=== PATIENT | female | born 1975 | race Hispanic/Latino ===

== ENCOUNTER → 2016-07-01 | Outpatient (CLI) | payer BC ==
[~2016-07-01] MED LIST: BACI500O59 TOP; CLAR10CA3 PO; CRES5TAB PO; CYCL10TA PO; DULC100C PO; E-Z-PAQUE 96% w/w SUSP 176GM BTL As Ordered ONE; EXCETAB80 PO; FERR220E2 PO; HYDR10T PO; HYDR1TAB97 PO; IBUP80TA PO; LIBR5CAP PO; MAGN1TAB25 PO; MAXA10TA14 PO; METF1000 PO; OMEP20CA3 PO; ORSYTAB PO; PROBCAP4 PO; SUDA30TA PO; VERA40TA PO; VITA10006 PO; VITA2000 PO
--- NOTE | 2016-07-01 12:03 | REP ---
Clinical: Inflammatory bowel disease. Technique: Single contrast small bowel follow-through examination. Findings: Client Service Representative film of the abdomen and pelvis is unremarkable. Small-bowel follow-through examination demonstrates normal appearance to the stomach, duodenum, jejunum, and ileum as well as ascending and transverse colon by single contrast barium evaluation. Spot images throughout the abdomen and pelvis demonstrate normal appearance and motility to the small bowel without areas of stricture/narrowing, fixed loops, or obvious intrinsic/extrinsic abnormalities. Normal terminal ileum and ileocecal valve identified in the right lower quadrant. Total fluoroscopic time 58 seconds. Impression: Normal small bowel follow-through examination. Signed by Edwardo Langley MD 07/01/2016 11:54 A
== END ==
LOC: M RAD 08:48
PROVIDERS: ATTEND Physician Assistant
DX: K58.9 Irritable bowel syndrome, unspecified (principal)

== ENCOUNTER → 2017-02-03 | Outpatient (CLI) | payer BC ==
[~2017-02-03] MED LIST changes: -E-Z-PAQUE 96% w/w SUSP 176GM BTL As Ordered ONE; +HYDR-3713 PO; +HYDR-643 PO; -HYDR10T PO; -HYDR1TAB97 PO; -METF1000 PO; +METF10004 PO
[2017-02-03 20:37] LABS: ALBUMIN 3.5 GM/DL (3.2-5.2); ALKALINE PHOSPHATASE 52 U/L (45-117); ALT/SGPT 29 U/L (12-78); ANION GAP 11 MEQ/L (8-16); AST/SGOT 19 U/L (15-37); BILIRUBIN,TOTAL 0.2 MG/DL (0.2-1.0); BLOOD UREA NITROGEN 16 MG/DL (7-18); CALCIUM LEVEL 8.7 MG/DL (8.5-10.1); CARBON DIOXIDE LEVEL 24 MEQ/L (21-32); CHLORIDE LEVEL 107 MEQ/L (98-107); CREATININE FOR GFR 0.96 MG/DL (0.55-1.02); GLOMERULAR FILTRATION RATE > 60.0 (>60); GLUCOSE, FASTING 94 MG/DL (70-105); POTASSIUM SERUM 4.6 MEQ/L (3.5-5.1); SODIUM LEVEL 142 MEQ/L (136-145)
== END ==
LOC: M SMT 14:18
PROVIDERS: ATTEND Physician Assistant Medical
DX: R19.7 Diarrhea, unspecified (principal)

== ENCOUNTER → 2017-05-26 | Outpatient (CLI) | payer BC ==
--- NOTE | 2017-05-27 05:57 | REP ---
Clinical: Pelvic cyst. Comparison: 05/28/2016. . Technique: Transabdominal pelvic ultrasound followed by transvaginal examination for better evaluation of the endometrium and adnexa. Findings: Bladder is unremarkable and measures 8.5 x 7.0 x 8.7 cm . Normal anteverted uterus measures 8.1 x 3.4 x 4.1 cm and a 1.7 cm submucosal fibroid is appreciated . The endometrial complex measures 4.9 mm thickness. Bilateral ovaries are normal in appearance. Right ovary measures 2.8 x 1.5 x 1.3 cm and includes 1 cm follicle. Left ovary measures 2.2 x 1.3 x 1.4 cm and includes 1.2 cm follicle. No pelvic fluid or adnexal mass lesion . Impression: 1. 1.7 cm submucosal fibroid. 2. Essentially normal bilateral ovaries without evidence for torsion.
== END ==
LOC: M WHC 13:53
PROVIDERS: ATTEND Obstetrics & Gynecology
DX: D25.0 Submucous leiomyoma of uterus (principal)

== ENCOUNTER → 2017-06-19 | Outpatient (CLI) | payer BC | LOC: M WHC 14:29 | DX: Z12.31 Encounter for screening mammogram for malignant neoplasm of breast (principal) | CPT/HCPCS: G0202 ==

== ENCOUNTER → 2017-07-03 | Outpatient (CLI) | payer BC ==
[2017-07-03 11:25] LABS: BASO % 0.2 % (0.0-1.0); EOS # 0.1 10^3/uL (0.0-0.50); EOS % 1.5 % (0.0-3.0); HEMATOCRIT 38.7 % (36.0-47.0); HEMOGLOBIN 12.4 g/dl (12.0-16.0); IMMATURE GRANULOCYTE % 0.2 % (0-0); LYMPH # 1.2 10^3/uL (1.5-4.5); LYMPH % 25.3 % (24.0-44.0); MEAN CORPUSCULAR HEMOGLOBIN 25.6 pg (27.0-33.0); MEAN CORPUSCULAR VOLUME 79.8 fl (80.0-96.0); MONO # 0.4 10^3/uL (0.0-0.8); MONO % 8.5 % (0.0-5.0); NEUTROPHILS # 2.9 10^3/uL (1.8-7.7); NEUTROPHILS % 64.3 % (36.0-66.0); PLATELET COUNT, AUTOMATED 451 10^3/uL (150-450); RED BLOOD COUNT 4.85 10^6/uL (4.00-5.40); RED CELL DISTRIBUTION WIDTH 15.9 % (11.5-14.5); WHITE BLOOD COUNT 4.6 10^3/uL (4.0-10.0)
[2017-07-03 11:46] LABS: ESTIMATED AVERAGE GLUCOSE 163 MG/DL (60-110); HEMOGLOBIN A1c 7.3 %
[2017-07-03 11:56] LABS: ALBUMIN 3.3 GM/DL (3.2-5.2); ALBUMIN/GLOBULIN RATIO 0.87 (1.00-1.93); ALKALINE PHOSPHATASE 52 U/L (45-117); ALT/SGPT 28 U/L (12-78); ANION GAP 11 MEQ/L (8-16); AST/SGOT 18 U/L (7-37); BILIRUBIN,TOTAL 0.3 MG/DL (0.2-1.0); BLOOD UREA NITROGEN 15 MG/DL (7-18); CALCIUM LEVEL 8.5 MG/DL (8.5-10.1); CARBON DIOXIDE LEVEL 25 MEQ/L (21-32); CHLORIDE LEVEL 104 MEQ/L (98-107); CHOLESTEROL LEVEL 152 MG/DL (<200); CHOLESTEROL RISK RATIO 3.102 (<5); CREATININE FOR GFR 0.78 MG/DL (0.55-1.02); GLOMERULAR FILTRATION RATE > 60.0 (>58); GLUCOSE, FASTING 129 MG/DL (70-105); HDL CHOLESTEROL 49 MG/DL (>40); LDL CHOLESTEROL 74.4 MG/DL (<100); NON-HDL-C 103 MG/DL; SODIUM LEVEL 140 MEQ/L (136-145); TOTAL PROTEIN 7.1 GM/DL (6.4-8.2); TRIGLYCERIDES LEVEL 143 MG/DL (<150)
[2017-07-03 12:07] LABS: MALB URINE SIEMENS 29.8 MG/L; MAU/CREAT RATIO 13.5 MCG/MG (0.0-30.0)
== END ==
LOC: M LAB 10:52
DX: E11.65 Type 2 diabetes mellitus with hyperglycemia (principal)
CPT/HCPCS: 80053

== ENCOUNTER → 2017-07-03 | Outpatient (CLI) | payer BC ==
[2017-07-03 11:53] LABS: ERYTHROCYTE SEDIMENTATION RATE 21 mm/hr (0-20)
[2017-07-03 11:54] LABS: RHEUMATOID FACTOR QUANT < 10.0 IU/ML (0-15.0)
[2017-07-05 00:09] LABS: ANTINUCLEAR ANTIBODIES DIRECT Negative (Negative); Lyme Disease IgG/IgM Antibodie <0.91 ISR (0.00-0.90); Lyme Disease IgM Ab Quantitati <0.80 index (0.00-0.79)
[2017-07-08 11:07] LABS: DRVV SCREEN 51.3 SEC
[2017-07-08 11:19] LABS: PTT LUPUS TYPE ANTICOAG SCREEN 1.3 (0-1.2)
[2017-07-08 11:27] LABS: DRVV CONFIRM 41.5 SEC; LUPUS CONFIRM RATIO 1.2; NORMALIZED RATIO 1.08 (0.00-1.20)
== END ==
LOC: M LAB 10:55
DX: R51 Headache (principal)
CPT/HCPCS: 85730

== ENCOUNTER → 2017-09-15 | Outpatient (CLI) | payer BC ==
[2017-09-15 10:53] LABS: BASO % 0.5 % (0.0-1.0); EOS # 0.2 10^3/uL (0.0-0.50); EOS % 2.6 % (0.0-3.0); HEMATOCRIT 39.3 % (36.0-47.0); HEMOGLOBIN 12.3 g/dl (12.0-16.0); IMMATURE GRANULOCYTE % 0.4 % (0-3.0); LYMPH # 1.3 10^3/uL (1.5-4.5); LYMPH % 22.2 % (24.0-44.0); MEAN CORPUSCULAR HEMOGLOBIN 25.6 pg (27.0-33.0); MEAN CORPUSCULAR HGB CONC 31.3 g/dl (32.0-36.5); MEAN CORPUSCULAR VOLUME 81.7 fl (80.0-96.0); MONO # 0.5 10^3/uL (0.0-0.8); MONO % 8.4 % (0.0-5.0); NEUTROPHILS # 3.8 10^3/uL (1.8-7.7); NEUTROPHILS % 65.9 % (36.0-66.0); PLATELET COUNT, AUTOMATED 408 10^3/uL (150-450); RED BLOOD COUNT 4.81 10^6/uL (4.00-5.40); RED CELL DISTRIBUTION WIDTH 15.9 % (11.5-14.5); WHITE BLOOD COUNT 5.7 10^3/uL (4.0-10.0)
[2017-09-15 11:02] LABS: ESTIMATED AVERAGE GLUCOSE 174 MG/DL (60-110); HEMOGLOBIN A1c 7.7 %
[2017-09-15 11:14] LABS: ALBUMIN 3.2 GM/DL (3.2-5.2); ALBUMIN/GLOBULIN RATIO 0.84 (1.00-1.93); ALKALINE PHOSPHATASE 64 U/L (45-117); ALT/SGPT 30 U/L (12-78); ANION GAP 9 MEQ/L (8-16); AST/SGOT 21 U/L (7-37); BILIRUBIN,TOTAL 0.2 MG/DL (0.2-1.0); BLOOD UREA NITROGEN 15 MG/DL (7-18); CALCIUM LEVEL 8.7 MG/DL (8.5-10.1); CARBON DIOXIDE LEVEL 26 MEQ/L (21-32); CHLORIDE LEVEL 107 MEQ/L (98-107); CREATININE FOR GFR 0.83 MG/DL (0.55-1.30); GLOMERULAR FILTRATION RATE > 60.0 (>58); GLUCOSE, FASTING 128 MG/DL (70-100); POTASSIUM SERUM 4.4 MEQ/L (3.5-5.1); SODIUM LEVEL 142 MEQ/L (136-145)
== END ==
LOC: M LAB 10:00
DX: E11.65 Type 2 diabetes mellitus with hyperglycemia (principal)
CPT/HCPCS: 80053

== ENCOUNTER → 2017-10-13 | Outpatient (CLI) | payer BC ==
[2017-10-13 15:24] LABS: BASO % 0.6 % (0.0-1.0); EOS # 0.1 10^3/uL (0.0-0.50); EOS % 1.9 % (0.0-3.0); HEMATOCRIT 36.9 % (36.0-47.0); HEMOGLOBIN 11.3 g/dl (12.0-15.5); IMMATURE GRANULOCYTE % 0.6 % (0-3.0); LYMPH # 0.5 10^3/uL (1.5-4.5); LYMPH % 16.3 % (24.0-44.0); MEAN CORPUSCULAR HEMOGLOBIN 24.7 pg (27.0-33.0); MEAN CORPUSCULAR HGB CONC 30.6 g/dl (32.0-36.5); MEAN CORPUSCULAR VOLUME 80.7 fl (80.0-96.0); MONO # 0.5 10^3/uL (0.0-0.8); MONO % 15.1 % (0.0-5.0); NEUTROPHILS % 65.5 % (36.0-66.0); PLATELET COUNT, AUTOMATED 368 10^3/uL (150-450); RED BLOOD COUNT 4.57 10^6/uL (4.00-5.40); RED CELL DISTRIBUTION WIDTH 15.9 % (11.5-14.5); WHITE BLOOD COUNT 3.1 10^3/uL (4.0-10.0)
[2017-10-13 15:36] LABS: ALBUMIN 3.1 GM/DL (3.2-5.2); ALBUMIN/GLOBULIN RATIO 0.82 (1.00-1.93); ALKALINE PHOSPHATASE 52 U/L (45-117); ALT/SGPT 71 U/L (12-78); ANION GAP 8 MEQ/L (8-16); AST/SGOT 56 U/L (7-37); BILIRUBIN,TOTAL 0.2 MG/DL (0.2-1.0); BLOOD UREA NITROGEN 13 MG/DL (7-18); CALCIUM LEVEL 8.1 MG/DL (8.5-10.1); CARBON DIOXIDE LEVEL 25 MEQ/L (21-32); CHLORIDE LEVEL 106 MEQ/L (98-107); CREATININE FOR GFR 0.86 MG/DL (0.55-1.30); GLOMERULAR FILTRATION RATE > 60.0 (>58); GLUCOSE, FASTING 168 MG/DL (70-100); SODIUM LEVEL 139 MEQ/L (136-145); TOTAL PROTEIN 6.9 GM/DL (6.4-8.2)
== END ==
LOC: M WUC 12:04
DX: A09 Infectious gastroenteritis and colitis, unspecified (principal)
CPT/HCPCS: 80053

== ENCOUNTER → 2017-10-13 | Outpatient (REF) | payer BC | LOC: M LAB REF 15:06 | DX: A09 Infectious gastroenteritis and colitis, unspecified (principal) | CPT/HCPCS: 87086 ==

== ENCOUNTER → 2017-12-18 | Outpatient (CLI) | payer BC ==
[2017-12-18 10:53] LABS: ALBUMIN 3.4 GM/DL (3.2-5.2); ALBUMIN/GLOBULIN RATIO 0.89 (1.00-1.93); ALKALINE PHOSPHATASE 52 U/L (45-117); ALT/SGPT 34 U/L (12-78); ANION GAP 9 MEQ/L (8-16); AST/SGOT 20 U/L (7-37); BILIRUBIN,TOTAL 0.2 MG/DL (0.2-1.0); BLOOD UREA NITROGEN 19 MG/DL (7-18); CALCIUM LEVEL 8.5 MG/DL (8.5-10.1); CARBON DIOXIDE LEVEL 25 MEQ/L (21-32); CHLORIDE LEVEL 107 MEQ/L (98-107); CREATININE FOR GFR 0.92 MG/DL (0.55-1.30); GLOMERULAR FILTRATION RATE > 60.0 (>58); GLUCOSE, FASTING 132 MG/DL (70-100); POTASSIUM SERUM 4.3 MEQ/L (3.5-5.1); SODIUM LEVEL 141 MEQ/L (136-145); TOTAL PROTEIN 7.2 GM/DL (6.4-8.2)
[2017-12-18 13:03] LABS: ESTIMATED AVERAGE GLUCOSE 174 MG/DL (60-110); HEMOGLOBIN A1c 7.7 %
== END ==
LOC: M LAB 09:57
DX: E11.65 Type 2 diabetes mellitus with hyperglycemia (principal)
CPT/HCPCS: 80053

== ENCOUNTER → 2018-04-03 | Outpatient (CLI) | payer OTHER ==
[2018-04-03 13:38] LABS: ANION GAP 10 MEQ/L (8-16); BLOOD UREA NITROGEN 15 MG/DL (7-18); CALCIUM LEVEL 8.8 MG/DL (8.5-10.1); CARBON DIOXIDE LEVEL 26 MEQ/L (21-32); CHLORIDE LEVEL 104 MEQ/L (98-107); CREATININE FOR GFR 0.82 MG/DL (0.55-1.30); GLOMERULAR FILTRATION RATE > 60.0 (>58); GLUCOSE, FASTING 139 MG/DL (70-100); POTASSIUM SERUM 4.7 MEQ/L (3.5-5.1); SODIUM LEVEL 140 MEQ/L (136-145)
[2018-04-03 13:58] LABS: ESTIMATED AVERAGE GLUCOSE 174 MG/DL (60-110); HEMOGLOBIN A1c 7.7 %
== END ==
LOC: M SMT 09:16
DX: E11.65 Type 2 diabetes mellitus with hyperglycemia (principal)
CPT/HCPCS: 83036

== ENCOUNTER → 2018-04-03 | Outpatient (CLI) | payer OTHER ==
[2018-04-03 13:34] LABS: MAGNESIUM LEVEL 1.9 MG/DL (1.8-2.4)
== END ==
LOC: M SMT 09:20
DX: K21.9 Gastro-esophageal reflux disease without esophagitis (principal); R12 Heartburn; E55.9 Vitamin D deficiency, unspecified; K58.9 Irritable bowel syndrome, unspecified
CPT/HCPCS: 83735

== ENCOUNTER → 2018-04-13 | Outpatient (CLI) | payer OTHER ==
[2018-04-13 19:00] LABS: BASO # 0.1 10^3/uL (0.0-0.2); BASO % 0.8 % (0.0-1.0); EOS # 0.1 10^3/uL (0.0-0.50); EOS % 1.8 % (0.0-3.0); HEMATOCRIT 36.6 % (36.0-47.0); HEMOGLOBIN 10.9 g/dl (12.0-15.5); IMMATURE GRANULOCYTE % 0.3 % (0-3.0); LYMPH # 1.6 10^3/uL (1.5-4.5); MEAN CORPUSCULAR HEMOGLOBIN 23.3 pg (27.0-33.0); MEAN CORPUSCULAR HGB CONC 29.8 g/dl (32.0-36.5); MEAN CORPUSCULAR VOLUME 78.4 fl (80.0-96.0); MONO # 0.6 10^3/uL (0.0-0.8); MONO % 9.2 % (0.0-5.0); NEUTROPHILS # 3.9 10^3/uL (1.8-7.7); NEUTROPHILS % 62.9 % (36.0-66.0); PLATELET COUNT, AUTOMATED 496 10^3/uL (150-450); RED BLOOD COUNT 4.67 10^6/uL (4.00-5.40); RED CELL DISTRIBUTION WIDTH 16.8 % (11.5-14.5); WHITE BLOOD COUNT 6.2 10^3/uL (4.0-10.0)
[2018-04-13 19:09] LABS: FERRITIN 4 NG/ML (8-252); IRON (FE) 23 UG/DL (50-170); PERCENT SATURATION 4.1 % (13.2-45.0); TOTAL IRON BINDING CAPACITY 559 UG/DL (250-450)
== END ==
LOC: M SMT 15:06
DX: N92.0 Excessive and frequent menstruation with regular cycle (principal)
CPT/HCPCS: 83550

== ENCOUNTER → 2019-02-16 | Outpatient (CLI) | payer BC ==
[~2019-02-16] MED LIST changes: +ALL10TAB28 PO; +ASPI81TA85 PO; +CVS1CAP2 PO; +DICY10CA13 PO; +FERR1ELX PO; -FERR220E2 PO; +FLUO20CA19 PO; +IRON65TA2 PO; +JANU100T PO; +LILL1TAB PO; +MAGN100T PO; -MAGN1TAB25 PO; +MAGN1TAB26 PO; +MELO15TA28 PO; -OMEP20CA3 PO; +OMEP20CA4 PO; +RA B2500 PO; +VITA250T4 PO
[2019-02-16 11:28] LABS: BASO % 0.3 % (0.0-1.0); EOS % 0.5 % (0.0-3.0); HEMOGLOBIN 8.7 g/dl (12.0-15.5); LYMPH # 0.8 10^3/uL (1.5-4.5); LYMPH % 13.7 % (24.0-44.0); MEAN CORPUSCULAR HEMOGLOBIN 23.3 pg (27.0-33.0); MEAN CORPUSCULAR VOLUME 80.2 fl (80.0-96.0); MONO # 0.4 10^3/uL (0.0-0.8); MONO % 7.1 % (0.0-5.0); NEUTROPHILS # 4.5 10^3/uL (1.8-7.7); NEUTROPHILS % 78.1 % (36.0-66.0); PLATELET COUNT, AUTOMATED 468 10^3/uL (150-450); RED BLOOD COUNT 3.74 10^6/uL (4.00-5.40); WHITE BLOOD COUNT 5.8 10^3/uL (4.0-10.0)
[2019-02-16 11:33] LABS: BLOOD UREA NITROGEN 17 MG/DL (7-18); CALCIUM LEVEL 8.5 MG/DL (8.5-10.1); CARBON DIOXIDE LEVEL 23 MEQ/L (21-32); CHLORIDE LEVEL 103 MEQ/L (98-107); CREATININE FOR GFR 0.81 MG/DL (0.55-1.30); GLOMERULAR FILTRATION RATE > 60.0 (>58); GLUCOSE, FASTING 205 MG/DL (70-100); POTASSIUM SERUM 4.4 MEQ/L (3.5-5.1); SODIUM LEVEL 137 MEQ/L (136-145)
== END ==
LOC: M SMT 08:40
PROVIDERS: ATTEND Physician Assistant
DX: Z01.818 Encounter for other preprocedural examination (principal)

== ENCOUNTER 2019-02-18 08:13 | Day surgery (SDC) | payer BC ==
[~2019-02-18] VITALS: Ht 154.9 cm; Wt 78.8 kg
[~2019-02-18 08:13] MED LIST changes: -ALL10TAB28 PO; +ALL10TAB29 PO; +LIDOCAINE 1% MDV 20ML VIAL SQ PRN; +LR 1,000 ML IV ONE
[2019-02-18 09:29] LABS: URINE PREG TEST NEGATIVE (NEGATIVE)
[2019-02-18] MEDS ORDERED: PROPOFOL 200 MG/20 ML VIAL As Ordered ONE (10:13)
[2019-02-18] MEDS ORDERED: dexameTHASONE 4 MG/ML 1ML VIAL (J1100) As Ordered ONE (10:13)
[2019-02-18] MEDS ORDERED: LIDOCAINE 2% INJ 100 MG/5 ML SDV (FOR ANES.) As Ordered ONE (10:13)
[2019-02-18] MEDS ORDERED: MIDAZOLAM INJ 2 MG/2 ML VIAL (J2250) As Ordered ONE (10:13)
[2019-02-18] MEDS ORDERED: KETOROLAC 60 MG/2 ML VIAL (J1885) As Ordered ONE (10:13)
[2019-02-18] MEDS ORDERED: fentaNYL 100 MCG/2 ML INJECTION (J3010) As Ordered ONE ×2 (10:13→11:14)
[2019-02-18] MEDS ORDERED: ONDANSETRON 4MG/2ML VIAL (J2405) As Ordered ONE (10:13)
[2019-02-18] MEDS ORDERED: PHENYLephrine HCL 500 MCG/5 ML (100MCG/ML) SYRINGE (J2370) As Ordered ONE (11:13)
[2019-02-18] MEDS ORDERED: IBUPROFEN 600 MG TAB PO PRN (12:00)
[2019-02-18] MEDS ORDERED: LR 1,000 ML IV SCH (12:00)
[2019-02-18] MEDS ORDERED: ONDANSETRON 4MG/2ML VIAL (J2405) IV PRN (12:00)
[2019-02-18] MEDS ORDERED: METOCLOPRAMIDE INJ 10MG/2ML VIAL (J2765) IV PRN (12:00)
[2019-02-18] MEDS ORDERED: fentaNYL 100 MCG/2 ML INJECTION (J3010) IV PRN (12:00)
[2019-02-18] MEDS ORDERED: PERCOCET 5MG/325MG TAB PO PRN (12:00)
[2019-02-18 13:50] VITALS: BP 137/86
--- NOTE | 2019-02-19 09:24 | RO ---
DATE OF PROCEDURE: 02/18/2019 PREOPERATIVE DIAGNOSES/INDICATION FOR SURGERY: Pain, bleeding fibroids. POSTOPERATIVE DIAGNOSES: Pain, bleeding fibroids. PROCEDURE: Dilation and curettage (D and C), hysteroscopy, failed ablation attempt. SURGEON: Tatianna Toussaint MD MARINE RADIO INSTALLER AND SERVICER: There was no endodontic assistant. ANESTHESIA: Laryngeal mask airway (LMA). BRIEF DESCRIPTION OF PROCEDURE AND FINDINGS: Radhika brought to the operating room where she was positioned, given sufficient LMA anesthesia, prepped and draped in the usual sterile fashion. The bladder was emptied and the anterior aspect of the cervix was grasped with a single-tooth tenaculum. The cervix is not readily assessable from below. This patient is not a total vaginal hysterectomy (TVH) candidate. The uterus was sounded to 9, endocervical cavity length of 4, giving an endometrial cavity length of 6. It was subsequently measured at width of 4.4 but we did not know yet. We then carefully scoped her. We could see a large fibroid filling the cavity, otherwise fairly atrophic endometrium other than this large fibroid filling the space of which the patient was already aware of this fibroid preoperatively. We then undertook curettage and really could not make any dent on this fibroid. It was really pedunculated and filling the cavity. We went ahead and tried to do the ablation. We placed the NovaSure. We just could not get a seal because there was too much empty space where the NovaSure was not against the wall because this fibroid was filling that space and it was not flush enough against the fibroid to seal. We did not have a perforation but we just could not get an adequate field. Multiple attempts were made and the device failed multiple times. Given that the patient had been offered and declined a hysterectomy and really wanted something done and visualization of the hysteroscopy with this fibroid really appeared to be the main issue, we went ahead and got the MyoSure scope and tried to resect the fibroid with the MyoSure. As documented in the pictures, we got quite a bit of that fibroid out but not all of it. After two bags, which were at this point leaking out of the cervix at this point as far as the saline goes, so we went ahead and stopped after that amount of time. I did try with the polyp forceps but it just fills the cavity and a bit wide. By the time we had a few pieces, we did get quite a bit of it off but we were not able to get 100% clear. The hope is that with this of tissue that perhaps it will improve the patient's cycles until she decides what she wants to do next. I do not think it is down enough to get a good seal for ablation but of course I am not in that way. So, the procedure was then ended. COMPLICATIONS: Due to anatomy, we could not get the ablation accomplished but there was no complication injury to the patient. CONDITION AND DISPOSITION: Radhika tolerated the procedure well and was recovering in the recovery room in good condition.
== END 2019-02-18 14:05 | disposition home or self-care (01) ==
LOC: M SDC 08:13
PROVIDERS: ATTEND Obstetrics & Gynecology
DX: R10.2 Pelvic and perineal pain (principal); D25.9 Leiomyoma of uterus, unspecified; D64.9 Anemia, unspecified; E78.5 Hyperlipidemia, unspecified; E11.9 Type 2 diabetes mellitus without complications; K21.9 Gastro-esophageal reflux disease without esophagitis; Z79.82 Long term (current) use of aspirin; Z79.899 Other long term (current) drug therapy; M79.7 Fibromyalgia; Z79.84 Long term (current) use of oral hypoglycemic drugs; Z88.8 Allergy status to other drugs, medicaments and biological substances; F41.9 Anxiety disorder, unspecified
CPT/HCPCS: 58558; 84703; 88305; J1100; J1885; J2250; J2370; J2405; J3010

== ENCOUNTER → 2020-08-12 | Outpatient (CLI) | payer BC ==
[~2020-08-12] MED LIST changes: -ALL10TAB29 PO; +ASPI81CH33 PO; -ASPI81TA85 PO; +ASPI81TA86 PO; +CETI-24 PO; +CYCL-707 PO; -CYCL10TA PO; -FLUO20CA19 PO; +FLUO20CA22 PO; -LIDOCAINE 1% MDV 20ML VIAL SQ PRN; +LOSA25TA14 PO; -LR 1,000 ML IV ONE; +MAGN400T2 PO; +METF-723 PO; +METH-1164 PO; +METO1TAB32 PO; +MICR1TAB18 PO; +OMEP1CAP73 PO; -OMEP20CA4 PO; +ROSU10TA6 PO; +SLOW142T5 PO; +VITA200021 PO; +VITA500C24 PO
== END ==
LOC: M LABSMTC 09:13
PROVIDERS: ATTEND Anesthesiology
DX: Z01.812 Encounter for preprocedural laboratory examination (principal); Z20.822 Contact with and (suspected) exposure to COVID-19

== ENCOUNTER 2020-08-17 12:15 | Day surgery (SDC) | payer BC ==
[~2020-08-17] VITALS: Ht 154.9 cm; Wt 78.0 kg
[~2020-08-17 12:15] MED LIST changes: +ACETAMINOPHEN 1000MG 100ML IV BTL (OFIRMEV) (J0131 PER 10MG) As Ordered ONE; +HYDROmorphone HCL 2 MG/ML 1ML VIAL (J1170) As Ordered ONE; +KETOROLAC 60MG 2ML VIAL As Ordered ONE; +LIDOCAINE 2% 100MG/5ML SDV (FOR ANES.) As Ordered ONE; +LR 1,000 ML IV ONE; +MIDAZOLAM INJ 2MG/2ML VIAL (J2250 PER 1MG) As Ordered ONE; +ONDANSETRON 4MG/2ML VIAL As Ordered ONE; +ROCURONIUM BROMIDE 50 MG/5 ML VIAL As Ordered ONE; +SUGAMMADEX SODIUM 500 MG/5 ML VIAL (BRIDION) As Ordered ONE; +ceFAZolin SOD 2 GM in IV 1 EA IV ONE; +dexameTHASONE 4 MG/ML 1ML VIAL (J1100 PER 1MG) As Ordered ONE; +fentaNYL 100 MCG/2 ML INJECTION (J3010) As Ordered ONE; +propofoL 200 MG/20 ML VIAL As Ordered ONE
[2020-08-17 12:54] LABS: HEMATOCRIT 41.2 % (36.0-47.0); MEAN CORPUSCULAR HEMOGLOBIN 27.1 pg (27.0-33.0); MEAN CORPUSCULAR HGB CONC 31.6 g/dl (32.0-36.5); MEAN CORPUSCULAR VOLUME 85.8 fl (80.0-96.0); PLATELET COUNT, AUTOMATED 473 10^3/uL (150-450); WHITE BLOOD COUNT 5.5 10^3/uL (4.0-10.0)
[2020-08-17] MEDS ORDERED: SCOPOLAMINE 1MG TRANSDERMAL PATCH As Ordered ONE (13:55)
[2020-08-17] MEDS ORDERED: SCOPOLAMINE 1MG TRANSDERMAL PATCH TOP ONE (14:15)
[2020-08-17] MEDS ORDERED: ROCURONIUM BROMIDE 50 MG/5 ML VIAL As Ordered ONE (15:06)
[2020-08-17] MEDS ORDERED: METHYLENE BLUE 0.5% (5MG/ML) 10 ML AMP (PROVAYBLUE) As Ordered ONE (15:50)
[2020-08-17] MEDS ORDERED: ONDANSETRON 4MG/2ML VIAL As Ordered ONE (16:41)
[2020-08-17] MEDS ORDERED: MORPHINE 1MG/ML IN 0.9% NACL 100ML IV BAG As Ordered ONE (16:42)
[2020-08-17] MEDS ORDERED: METOCLOPRAMIDE INJ 10MG/2ML VIAL (J2765 PER 1) As Ordered ONE (16:42)
[2020-08-17] MEDS ORDERED: ONDANSETRON 4MG/2ML VIAL IV PRN ×2 (16:50→17:00)
[2020-08-17] MEDS ORDERED: oxyCODONE 5MG TAB PO PRN (16:50)
[2020-08-17] MEDS ORDERED: LR 1,000 ML IV SCH (16:50)
[2020-08-17] MEDS ORDERED: MORPHINE 2 MG/ML 1ML VIAL (J2270) IV PRN (16:50)
[2020-08-17] MEDS ORDERED: fentaNYL 100 MCG/2 ML INJECTION (J3010) IV PRN (16:50)
[2020-08-17] MEDS ORDERED: NALBUPHINE HCL 10 MG/ML AMP (J2300) IV PRN (17:00)
[2020-08-17] MEDS ORDERED: MORPHINE 1MG/ML IN 0.9% NACL 100ML IV BAG IV PRN (17:00)
[2020-08-17] MEDS ORDERED: EPIDURAL/PCA KEYS XX PRN (17:00)
[2020-08-17] MEDS ORDERED: diphenhydrAMINE 50MG/ML VIAL (J1200) IV PRN (17:00)
[2020-08-17] MEDS ORDERED: NS 1,000 ML IV SCH (17:00)
[2020-08-17] MEDS ORDERED: NALOXONE INJ 0.4MG/1ML VIAL (J2310 PER 1MG) IV PRN (17:00)
[2020-08-17] MEDS ORDERED: IBUPROFEN 600MG TAB PO PRN (17:05)
[2020-08-17] MEDS ORDERED: NORCO, ANEXSIA 5/325MG TABLET (HYDROcodone/ACETAMINOPHEN) PO PRN (17:05)
[2020-08-17] MEDS ORDERED: LORATADINE 10 MG TAB PO PRN (17:10)
[2020-08-17] MEDS ORDERED: RIZATRIPTAN BENZOATE 10 MG TAB PO PRN (17:10)
[2020-08-17] MEDS ORDERED: METOCLOPRAMIDE INJ 10MG/2ML VIAL (J2765 PER 1) IV PRN (17:15)
[2020-08-17 19:00] VITALS: BP 142/92
[2020-08-17 19:30] VITALS: BP 134/78
[2020-08-17 20:30] VITALS: BP 137/98
[2020-08-17] MEDS: VERAPAMIL 40 MG TAB PO SCH (20:40)
[2020-08-17] MEDS: methocarbamoL 500 MG TAB PO SCH (20:41)
[2020-08-17] MEDS: LR 1,000 ML IV SCH (20:42)
[2020-08-17] MEDS ORDERED: ROSUVASTATIN 10 MG TAB (CRESTOR) PO SCH (21:00)
[2020-08-17] MEDS ORDERED: FLUoxetine 20 MG CAP PO SCH (21:00)
[2020-08-17] MEDS ORDERED: CETIRIZINE (ZyrTEC) 10 MG TAB PO SCH (21:00)
[2020-08-17 21:30] VITALS: BP 133/84
[2020-08-17 23:30] VITALS: BP 151/81
[2020-08-18] MEDS: LR 1,000 ML IV SCH ×2 (01:05→08:08)
[2020-08-18 02:00] VITALS: BP 130/88
[2020-08-18 06:00] VITALS: BP 139/76
[2020-08-18 07:26] VITALS: BP 136/89
[2020-08-18] MEDS: VERAPAMIL 40 MG TAB PO SCH (07:26)
[2020-08-18] MEDS: methocarbamoL 500 MG TAB PO SCH (07:27)
[2020-08-18] MEDS ORDERED: metFORMIN (GLUCOPHAGE) 500MG TAB PO SCH (08:00)
[2020-08-18] MEDS ORDERED: LACTOBACILLUS ACIDOPHILUS CAP (BACID) PO SCH (09:00)
[2020-08-18] MEDS ORDERED: LOSARTAN 25 MG TAB PO SCH (09:00)
[2020-08-18] MEDS ORDERED: METOPROLOL SUCC *XL* 25MG TAB (TopROL *XL*) PO SCH (09:00)
[2020-08-18] MEDS ORDERED: OMEPRAZOLE 20 MG CAP PO SCH (09:00)
[2020-08-18 10:00] VITALS: BP 127/83
[2020-08-18] MEDS ORDERED: IBUP-1022 PO (11:05)
[2020-08-18] MEDS ORDERED: HYDR-3715 PO (11:05)
[2020-08-18] MEDS ORDERED: SITagliptin 50 MG TAB (JANUVIA) PO SCH (12:00)
--- NOTE | 2020-08-18 15:40 | RO ---
OPERATIVE NOTE DATE OF OPERATION: 08/17/2020 PREOPERATIVE DIAGNOSIS/INDICATION FOR SURGERY: Pain, bleeding, fibroids, failed conservative measures. POSTOPERATIVE DIAGNOSIS: Pain, bleeding, fibroids, failed conservative measures. FINDINGS: Multiple fibroids as expected as documented in the operative photos. SURGEON: Tatianna Toussaint MD GROUNDHAND: Ludmila Weston ANESTHESIA: General endotracheal anesthesia. SPECIMEN: Uterus and tubes, the patient retains her ovaries at her request. PROCEDURE: Also cystourethroscopy. DESCRIPTION OF PROCEDURE/FINDINGS: Radhika was brought to the operating room where sufficient general endotracheal anesthesia was induced and she was prepped, draped and positioned in the usual sterile fashion with the weighted speculum placed and uterine manipulator placed in the usual fashion, secured with #0 Vicryl suture and Hoff with the ability to back-fill also placed. Attention was then turned to the abdomen. Transverse semilunar incision was made below the umbilicus in this patient who had had a previous surgery in infancy with transverse ventral incision for bowel obstruction as an and what looks like two drain sites. We went below this just below the umbilicus in the typical spot. The skin was incised and in semilunar transverse fashion and sharp and blunt dissection were continued through the subcutaneous tissues to the level of the rectus fascia which was transversely incised, secured with #0 Vicryl suture. After the fascia was incised we entered the peritoneum bluntly. Marce cannula was placed and peritoneal cavity visualized. There were some minor adhesions above the umbilicus consistent with the previous surgery. These were photographed but nothing that would impede the surgery, certainly nothing that was giving evidence of symptoms after this surgery infancy. Two left-sided and one right-sided ports were placed. The patient was placed in Trendelenburg in normal positioning and the robot was docked. Attention was turned to the console work. Working from the robotic console the tubes were carefully from the ovaries, the mesentery of the tubes carefully cauterized and transected starting first on the left and then the right. Then the uteroovarian suspensory ligaments were cauterized and transected, again left to right and then the round ligaments cauterized and transected. The broad ligament was then incised posteriorly and anteriorly. We had been able to identify the ureters reasonably well and we were able to keep the bowel out of the field of dissection. With the ovaries now freed from the uterus and tubes we were able to carefully dissect the broad ligament to isolate the uterine vasculature. This was considerably more prominent than usual consistent with the patient's fibroids which are pictured for documentation. Transverse incision was made across the front of the lower uterine segment to free the peritoneum so we could displace the bladder. The bladder was back-filled with the Hoff to carefully delineate its location. I carefully dissected that down, did not need to use cautery for that portion of the procedure. We cauterized the uterine vasculature again to minimize the blood flow to the uterus and then working posteriorly carefully dissected away the peritoneum over the posterior uterus again to let the ureters fall away, cauterize above the insertion of the uterosacrals and then carefully made the posterior colpotomy working again above the insertion of the uterosacrals to secure better future support. We then made the anterior colpotomy and joined these two dissections. As expected there was considerable vasculature present. The uterus was delivered into the vagina to maintain the pneumoperitoneum and angle stitches of 2-0 V-Loc were used. There were definitely two pumping bleeders at the left side so we oversewed this until we knew we had the bleeding under control and then separately had a separate V-Loc for the right side and then closed the vaginal cuff, irrigated and suctioned in order to confirm this. We could still see the ureters but left ureter was looking sluggish and I had to secure those bleeders which were secure even with the pressure down in the abdomen but given the kind of sluggish looking to the peristalsis decision was made to add cystourethroscopy due to the patient's specific findings. As a result the robot was undocked. The patient was removed from Trendelenburg and the uterus and the tubes with fibroids removed from the vagina. The Hoff was removed so that we could place the cystoscope using saline as distention media, visualized the bladder, clear jets of methylene blue urine were readily visible left and right side. There was no evidence of injury to the bladder. No suture or burn injury evident and the ureters were functioning normally. The cysto was completed, the Hoff replaced and with new gloves attention turned back to closure of the wound. The ports were removed after the CO2 was allowed to further escape the abdomen. The fascial wound at the umbilicus was closed with #0 Vicryl retention sutures and then 3-0 Vicryl was used at the skin for subcuticular closure at all four sites with good approximation and hemostasis achieved. Dry, sterile dressings were applied. ESTIMATED BLOOD LOSS FOR PROCEDURE: 100 mL. FLUID REPLACEMENT: Crystalloid. COMPLICATIONS: None. CONDITION AND DISPOSITION: Radhika tolerated the procedure well and was recovering in the recovery room in good condition.
== END 2020-08-18 12:29 | disposition home or self-care (01) ==
LOC: M SDC 12:15 → M MSPAV 18:37 → M SDC 08-18 12:29
PROVIDERS: ATTEND Obstetrics & Gynecology
DX: D25.9 Leiomyoma of uterus, unspecified (principal); R10.2 Pelvic and perineal pain; N94.10 Unspecified dyspareunia; J45.909 Unspecified asthma, uncomplicated; I10 Essential (primary) hypertension; E11.9 Type 2 diabetes mellitus without complications; E78.00 Pure hypercholesterolemia, unspecified; K58.8 Other irritable bowel syndrome; Z79.84 Long term (current) use of oral hypoglycemic drugs; Z79.82 Long term (current) use of aspirin; Z79.899 Other long term (current) drug therapy
CPT/HCPCS: 36415; 58571; 81025; 85027; 86850; 86900; 86901; 88307; J0131; J0690; J1100; J1170; J1885; J2250; J2405; J2765; J3010; Q9968; S2900

== ENCOUNTER → 2020-09-22 | Outpatient (REF) | payer BC ==
[~2020-09-22] MED LIST changes: -ACETAMINOPHEN 1000MG 100ML IV BTL (OFIRMEV) (J0131 PER 10MG) As Ordered ONE; +HYDR-3715 PO; -HYDROmorphone HCL 2 MG/ML 1ML VIAL (J1170) As Ordered ONE; +IBUP-1022 PO; -KETOROLAC 60MG 2ML VIAL As Ordered ONE; -LIDOCAINE 2% 100MG/5ML SDV (FOR ANES.) As Ordered ONE; -LR 1,000 ML IV ONE; -MIDAZOLAM INJ 2MG/2ML VIAL (J2250 PER 1MG) As Ordered ONE; -ONDANSETRON 4MG/2ML VIAL As Ordered ONE; -ROCURONIUM BROMIDE 50 MG/5 ML VIAL As Ordered ONE; -SUGAMMADEX SODIUM 500 MG/5 ML VIAL (BRIDION) As Ordered ONE; -ceFAZolin SOD 2 GM in IV 1 EA IV ONE; -dexameTHASONE 4 MG/ML 1ML VIAL (J1100 PER 1MG) As Ordered ONE; -fentaNYL 100 MCG/2 ML INJECTION (J3010) As Ordered ONE; -propofoL 200 MG/20 ML VIAL As Ordered ONE
[2020-09-22 16:33] LABS: APPEARANCE, URINE HAZY (CLEAR); BACTERIA, URINE AUTO NEGATIVE (NEGATIVE); BILIRUBIN, URINE AUTO NEGATIVE (NEGATIVE); BLOOD, URINE BLOOD NEGATIVE (NEGATIVE); CALCIUM OXALATE CRYSTALS SMALL; COLOR, URINE YELLOW (YELLOW); GLUCOSE, URINE (UA) AUTO 1+ mg/dL (NEGATIVE); KETONE, URINE AUTO TRACE mg/dL (NEGATIVE); LEUKOCYTE ESTERASE, URINE AUTO 1+ (NEGATIVE); MUCUS, URINE SMALL (NEGATIVE); NITRITE, URINE AUTO NEGATIVE (NEGATIVE); PROTEIN, URINE AUTO NEGATIVE (NEGATIVE); RBC, URINE AUTO 1 /HPF (0-3); SQUAMOUS EPITHELIAL CELL UR AU 6 /HPF (0-6); UROBILINOGEN, URINE AUTO 0.2 mg/dL (0.0-2.0); WBC, URINE AUTO 3 /HPF (0-3)
== END ==
LOC: M LAB REF 15:58
PROVIDERS: ATTEND Obstetrics & Gynecology
DX: D25.1 Intramural leiomyoma of uterus (principal)